=== PATIENT | female | born 2005 | race Caucasian/White ===

== ENCOUNTER → 2023-08-11 08:11 | Outpatient (BNVA) | payer SELFPAY | PROVIDERS: Visit Provider Nurse Practitioner Family | DX: R50.9 Fever, unspecified (principal); J10.1 Influenza due to other identified influenza virus with other respiratory manifestations | CPT/HCPCS: 87400 ==

== ENCOUNTER 2023-08-19 11:27 | Outpatient (REF) | payer SELFPAY ==
[2023-08-22 17:14] LABS: Quantiferon Mitogen 6.84 IU/mL; Quantiferon Nil 0.04 IU/mL; Quantiferon Plus TB1 0.03 IU/mL; Quantiferon Plus TB2 0.01 IU/mL; Quantiferon TB Gold NEGATIVE (NEGATIVE)
== END 2023-08-19 11:28 | disposition home or self-care (01) ==
LOC: LAB 11:27
DX: Z11.1 Encounter for screening for respiratory tuberculosis (principal)
CPT/HCPCS: 86480

== ENCOUNTER 2023-11-05 18:51 | Emergency (ER) | payer OTHER, SELFPAY ==
[2023-11-05 18:58] VITALS: BP 131/64; PULSE 115; RESP 18; TEMP 37.3; O2SAT 97; BMI 32.9
--- NOTE | 2023-11-05 19:47 | ED_ITS ---
HPI - URI/Sore Throat General: Chief Complaint: Upper Respiratory Infection Stated Complaint: feeling weak, headache Time Seen by Provider: 11/05/23 19:39 Source: patient and family Mode of arrival: ambulatory Limitations: no limitations History of Present Illness: This patient presents to the emergency department because of body aches subjective fever runny nose sore throat and congestion that began last evening and is continued today. She states that she has been in bed most of the day. 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 She has a history of chronic migraines and she states she had a concomitant headache but she has not taken any of her headache medication today. She states her last menstrual period was a few days ago and normal. She has not missed any menses. She denies any nausea vomiting or diarrhea but has body aches. She is able to swallow fluids without difficulty. MD elicited complaint: rhinorrhea and nasal congestion Description of mucous: clear Context: sick contacts Associated symptoms: Reports cough, fever(s), headache(s), nasal congestion and sore throat; Deny abdominal pain, chest pain, diarrhea, ear or mastoid pain, nausea or vomiting Review of Systems Const: Reports: fever(s) and body aches ENMT: Reports: throat pain and nasal congestion; Denies: odynophagia or ear or mastoid pain Card: Denies: chest pain Resp: Reports: non-productive cough GI: Denies: abdominal pain, nausea, vomiting or diarrhea : Denies: difficulty voiding, dysuria, urinary frequency or vaginal bleeding Musc: Denies: neck pain, back pain, extremity pain or extremity swelling Skin/Breast: Denies: rash or pruritus Neuro: Reports: headache(s) PFSH ED PFSH: Medical History Psychiatric care Family History Denies family history of Colon cancer Ovarian cancer Prostate cancer Diabetes Heart disease Breast cancer Hypertension Uterine cancer Thyroid disease Stroke Social History Smoking and tobacco/nicotine status: never used tobacco/nicotine Physical Exam Narrative: EXAM NARRATIVE: She appears ill but is able to respond and appropriate goal-directed fashion. She is able to speak in complete sentences without dyspnea or stridor Const: COMMON NORMALS: patient oriented x3, no limitations and alert GENERAL APPEARANCE: cooperative NUTRITIONAL APPEARANCE: overweight HENMT: COMMON NORMALS: normocephalic, Normal nasal mucous membranes and turbinates present, moist oral mucous membranes and oropharynx normal HEAD & SCALP: normocephalic FACE & SINUS: sinuses nontender NOSE: Normal nasal mucous membranes and turbinates present THROAT: tonsils normal and uvula midline Eye: COMMON NORMALS: Equal, round and reactive pupils present, EOMs intact bilaterally and conjunctivae normal CONJUNCTIVA: Yes conjunctivae normal PUPIL: Yes Equal, round and reactive pupils present Neck/C-Spine: COMMON NORMALS: full ROM, no lymphadenopathy, supple and no meningeal signs Chest: COMMONS NORMALS: normal inspection of the chest Resp: COMMON NORMALS: normal respiratory effort, No retractions, No use of accessory muscles and clear to auscultation bilaterally AUSCULTATION: clear to auscultation bilaterally Cardio: COMMON NORMALS: regular rate, regular rhythm, No murmurs present (Cardio) and Peripheral pulses 2+ throughout RATE: regular rate RHYTHM: regular rhythm PERIPHERAL PULSES: Peripheral pulses 2+ throughout GI: COMMON NORMALS: Normal to inspection, nondistended, normoactive bowel sounds present and Soft to palpation PALPATION: Yes Soft to palpation : COMMON NORMALS: Yes no CVA tenderness BLADDER/KIDNEY EXAM: Yes no CVA tenderness Back/Pelvis: COMMON NORMALS: no CVA tenderness, no thoracic nor lumbar tenderness and thoraco-lumbar ROM normal Neuro: COMMON NORMALS: patient oriented x3, moves all extremities, no focal motor deficits and no sensory deficits noted SENSORIUM/ORIENTATION: Yes alert MENINGEAL SIGNS: Yes no meningeal signs Psych: COMMON NORMALS: mental status grossly normal Skin: COMMON NORMALS: no rashes or lesions noted, turgor normal and no jaundice GENERAL SKIN EXAM: no rashes or lesions noted and turgor normal Course Vital Signs: Vital signs: Vital Signs Temperature 99.1 F 11/05/23 18:58 Pulse Rate 115 H 11/05/23 18:58 Respiratory Rate 18 11/05/23 18:58 Blood Pressure 131/64 11/05/23 18:58 Pulse Oximetry 97 11/05/23 18:58 Oxygen Delivery Me thod Room Air 11/05/23 18:58 MDM - URI/Sore Throat Medical Decision Making This patient came to the emergency department as per the history of present illness. She is exposed to potential infectious disease as she works as a rigging worker in the emergency department. Medical examination did not reveal any focal findings such as hypoxia or other concerns. No other focal findings on clinical examination. Evaluation for possible Streptococcus as well as coronavirus were obtained. In the meantime she was also given IV fluids to help hydrate her. Her COVID-19 antigen is positive. She will be discharged with usual COVID-19 precautions with close follow-up. Lab Data I reviewed the patient's lab results. Laboratory Results SARS-CoV-2 Ag (Rapid) positive (Negative) H 11/05/23 19:54 Group A Strep Rapid Negative (Negative) 11/05/23 19:54 No radiology studies performed this visit Discharge Plan Discharge Patient Disposition: Home Clinical Impression: COVID-19 Condition: Stable Prescriptions: No Action trazodone 50 mg tablet 100 mg PO .HS PRN (Reason: insomnia) Qty: 60 2RF fluoxetine [Prozac] 20 mg capsule 20 mg PO DAILY Qty: 30 2RF albuterol sulfate [Ventolin HFA] 90 mcg/actuation HFA aerosol inhaler 2 puff inhalation QID Qty: 6.7 0RF fluticasone propionate [Flonase Allergy Relief] 50 mcg/actuation spray,suspension 1 spray intranasal BID Qty: 16 0RF Rx Instructions: administer into each nostril sumatriptan succinate [Imitrex] 25 mg tablet See Rx Instructions PO .COMPLEX Qty: 14 0RF Rx Instructions: take 1 tab at onset of headache; if no relief may repeat 1 tab after at least 2 hrs; max = 4 tabs/24 hr PO propranolol 80 mg capsule,extended release 24hr 80 mg PO DAILY 14 Days Qty: 14 0RF Discharge Orders: Discharge ED (Routine); Ordered 11/05/23 Ordered By: Michael Santos Referrals: [facility], [Primary Care Provider] - Discharge Diet: Advance as tolerated Discharge Activity: Return to work/school after cleared by PCP/Specialist Patient Instructions: Opioid Safety, Pain Management, Droplet Precautions (ED) Activity Restrictions/Additional Instructions: You have tested positive for COVID-19. The current recommendations for the isolation for by the Center for disease control recommend 5 days isolation. You should wear a mask to help reduce your transmission to others. Continue to hydrate yourself with sports drinks and water half-strength apple juice etc. You should resume a regular diet as you tolerated. If you develop any new or worsening symptoms you are welcome to return to the emergency department for reevaluation. Coding Level of Care Code ED Composing Room Supervisor for Kendra Ruelas
[2023-11-05] MEDS: lactated ringers 1,000 ML 999 ML IV (20:09)
[2023-11-05 20:30] LABS: Rapid Strep A Test Negative (Negative)
[2023-11-05 20:32] LABS: SARS Covid-2 Antigen positive (Negative)
[2023-11-05 20:52] VITALS: BP 140/81; PULSE 98; RESP 16; TEMP 37.3; O2SAT 99
== END 2023-11-05 20:49 | disposition home or self-care (01) ==
PROVIDERS: Emergency Provider Emergency Medicine
DX: U07.1 COVID-19 (principal)
CPT/HCPCS: 87081; 87426; 87880; 96360; 99284; J7120

== ENCOUNTER 2024-05-25 21:04 | Emergency (ER) | payer OTHER, SELFPAY ==
--- NOTE | 2024-05-25 21:06 | XRR_ITS ---
PROCEDURE INFORMATION: Exam: XR Right Ankle Exam date and time: 05/25/2024 9:39 PM Age: 19 years old Clinical indication: Pain; Ankle; Right; Additional info: Fall pain TECHNIQUE: Imaging protocol: Radiologic exam of the right ankle. Views: 3 or more views. COMPARISON: No relevant prior studies available. FINDINGS: Bones/joints: Normal. Soft tissues: Normal. XR/XR ankle RT min 3V* [id number] IMPRESSION: No acute findings.
[2024-05-25 21:26] VITALS: BP 120/75; PULSE 93; RESP 18; TEMP 36.8; O2SAT 99; BMI 34.7
--- NOTE | 2024-05-25 23:44 | W.ED.EXTPRO ---
HPI - Extremity Problem General: Chief complaint: Extremity Injury, Lower Stated complaint: FALL twisted R ankle Time Seen by Provider: 05/25/24 22:10 Source: patient Mode of arrival: wheelchair Limitations: no limitations History of Present Illness: Patient is a 19-year-old female who presents the emergency department complaining of right ankle pain. Patient states she was at work and took an awkward step, twisting her right ankle in an inversion fashion. States she has not tried to walk secondary to the pain, she arrives in a wheelchair. She notes that she is on her feet all day for work and does not think she can go back to work with amount of pain she is. Has not taken anything for her symptoms. She notes that it feels better if she hangs her right foot off the bed. No knee pain. No numbness weakness or tingling in her right foot. No significant swelling. No other symptoms noted at this time. Vitals within normal limits. MD Complaint: joint pain Onset (ago): hour(s) Pain Consistency: constant Location: right and lower extremity (Ankle) Quality: aching and sharp Radiation: none Exacerbating factors: range of motion, weight bearing and walking Associated symptoms: Deny chest pain, fever(s) or rash Related Data Previous Rx's ?Medication ?Instructions ?Recorded albuterol sulfate 90 mcg/actuation 2 puff inhalation QID #6.7 grams 01/24/24 aerosol inhaler (Ventolin HFA) calcipotriene 0.005 % topical cream 1 applic topical BID #120 grams 04/25/24 clobetasol 0.05 % lotion 1 applic topical BID PRN psoriasis 04/25/24 2 weeks #118 mL propranolol 20 mg tablet 20 mg PO BID #60 tabs 04/25/24 sumatriptan succinate 25 mg tablet See Rx Instructions PO .COMPLEX 04/25/24 (Imitrex) #30 tabs trazodone 50 mg tablet 50 mg PO .HS PRN insomnia #90 tabs 04/25/24 triamcinolone acetonide 0.1 % 1 applic topical BID PRN psoriasis 04/25/24 topical ointment 2 weeks #30 grams Allergies Allergy/AdvReac Type Severity Reaction Status Date / Time No Known Allergies Allergy Verified 04/25/24 13:12 Review of Systems General: Reports: 10 or more systems reviewed and unremarkable except in HPI and below Const: Denies: fever(s) or chills Card: Denies: chest pain Resp: Denies: dyspnea or productive cough GI: Denies: abdominal pain, nausea, vomiting or diarrhea : Denies: flank pain Musc: Reports: joint pain (Right ankle) and limited range of motion; Denies: neck pain, back pain, extremity pain, extremity swelling, joint swelling, joint redness, joint warmth or muscle weakness Skin/Breast: Denies: rash Neuro: Denies: headache(s), numbness in extremities or weakness in extremities PFSH ED PFSH: Medical History Psoriasis Migraines Endometriosis Dysmenorrhea, unspecified Psychiatric care Family History Denies family history of Colon cancer Ovarian cancer Prostate cancer Diabetes Heart disease Breast cancer Hypertension Uterine cancer Thyroid disease Stroke Social History Smoking and tobacco/nicotine status: current every day tobacco/nicotine user Physical Exam Const: COMMON NORMALS: no acute distress, patient oriented x3, no limitations, healthy appearing, alert and well nourished HENMT: COMMON NORMALS: normocephalic and atraumatic HEAD & SCALP: normocephalic and atraumatic Neck/C-Spine: COMMON NORMALS: full ROM, supple and no meningeal signs Resp: COMMON NORMALS: normal respiratory effort and No use of accessory muscles Extremity: COMMON NORMALS: normal to inspection, full ROM, capillary refill normal, no joint enlargement and no clubbing, cyanosis or edema NARRATIVE EXTREMITY EXAM: Tender to palpation right lateral ankle, positive inversion ankle testing. No joint laxity. No bruising or obvious swelling of the right ankle at this time. No obvious swelling of the right foot. Distal neurovascular exam intact. Normal dorsiflexion and plantarflexion. Dorsalis pedis and posterior tibial pulse palpable. Normal knee exam. Neuro: COMMON NORMALS: patient oriented x3, moves all extremities, no focal motor deficits and no sensory deficits noted SENSORIUM/ORIENTATION: Yes alert MENINGEAL SIGNS: Yes no meningeal signs Skin: COMMON NORMALS: no rashes or lesions noted GENERAL SKIN EXAM: no rashes or lesions noted Course Vital Signs: Vital signs: Vital Signs Temperature 98.3 F 05/25/24 21:26 Pulse Rate 93 05/25/24 21:26 Respiratory Rate 18 05/25/24 21:26 Blood Pressure 120/75 05/25/24 21:26 Pulse Oximetry 99 05/25/24 21:26 Oxygen Delivery Me thod Room Air 05/25/24 21:26 MDM - Extremity (Nontraumatic) Medical Decision Making Patient had inversion ankle injury, her x-ray was normal but did have quite a bit of tenderness of right lateral ankle. I suspect ankle sprain will however treat conservatively with RICE therapy and ibuprofen and Tylenol. Compression added here and she is given crutches to use as tolerated and at her request, but did encourage early ambulation and ultimately gave her a work note for tomorrow due to her job requiring standing for greater than 10 hours. Return precautions given, she is encouraged to follow-up routinely with primary care. Lab Data Radiology Impressions Ankle X-Ray 05/25/24 21:06 IMPRESSION: No acute findings. All radiology interpretation(s) finalized by discharge Discharge Plan Discharge Patient Disposition: Home Clinical Impression: Right ankle sprain Condition: Stable Prescriptions: No Action trazodone 50 mg tablet 50 mg PO .HS PRN (Reason: insomnia) Qty: 90 2RF propranolol 20 mg tablet 20 mg PO BID Qty: 60 1RF sumatriptan succinate [Imitrex] 25 mg tablet See Rx Instructions PO .COMPLEX Qty: 30 0RF Rx Instructions: take 1 tab at onset of headache; if no relief may repeat 1 tab after at least 2 hrs; max = 4 tabs/24 hr PO clobetasol 0.05 % lotion 1 applic topical BID PRN (Reason: psoriasis) 14 Days Qty: 118 0RF Rx Instructions: Apply BID for flare, no more than 2 weeks, not on face triamcinolone acetonide 0.1 % ointment 1 applic topical BID PRN (Reason: psoriasis) 14 Days Qty: 30 2RF Rx Instructions: apply twice daily, alternate with calcipotriene calcipotriene 0.005 % cream 1 applic topical BID Qty: 120 0RF Rx Instructions: apply twice daily, no more than 2 weeks a month. alternating with triamcinolone albuterol sulfate [Ventolin HFA] 90 mcg/actuation HFA aerosol inhaler 2 puff inhalation QID Qty: 6.7 0RF Discharge Orders: Discharge ED (Routine); Ordered 05/25/24 Ordered By: Cayden Clifton Referrals: Saad Gonzalez MD [Primary Care Provider] - Patient Instructions: Ankle Sprain (ED) Activity Restrictions/Additional Instructions: Rest, ice, compression, and elevation. Alternate ibuprofen and Tylenol as we discussed. Range of motion as tolerated, weightbearing as tolerated. Work note provided. Please see attached patient instructions for further education. Follow-up with primary care routinely. Stand Alone Forms: Work/School Release Print Language: Gibraltarian Coding Level of Care Code ED Site Damage Prevention Technician for Kendra Ruelas
[2024-05-25 23:57] VITALS: BP 118/73; PULSE 89; RESP 16; O2SAT 100
== END 2024-05-25 23:49 | disposition home or self-care (01) ==
PROVIDERS: Emergency Provider Physician Assistant; PCP Family Medicine
DX: S93.401A Sprain of unspecified ligament of right ankle, initial encounter (principal); Z72.0 Tobacco use; X58.XXXA Exposure to other specified factors, initial encounter
CPT/HCPCS: 73610; 99283; E0114

== ENCOUNTER 2024-06-17 12:33 | Emergency (ER) | payer OTHER, SELFPAY ==
[2024-06-17 12:47] VITALS: BP 147/99; PULSE 65; RESP 18; TEMP 36.8; O2SAT 100; BMI 32.9
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
[2024-06-17 13:16] VITALS: BP 141/88; PULSE 66; O2SAT 99
== END 2024-06-17 13:16 | disposition home or self-care (01) ==
PROVIDERS: Emergency Provider Emergency Medicine; PCP Family Medicine
DX: T21.01XA Burn of unspecified degree of chest wall, initial encounter (principal); X58.XXXA Exposure to other specified factors, initial encounter
CPT/HCPCS: 99283

== ENCOUNTER 2024-06-21 16:16 | Emergency (ER) | payer OTHER, SELFPAY ==
[2024-06-21 16:23] VITALS: BP 120/78; PULSE 72; RESP 14; TEMP 36.8; O2SAT 98
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
[2024-06-21 17:53] VITALS: BP 123/59; PULSE 60; O2SAT 99
== END 2024-06-21 17:54 | disposition home or self-care (01) ==
PROVIDERS: Emergency Provider Physician Assistant; PCP Family Medicine
DX: T21.21XA Burn of second degree of chest wall, initial encounter (principal); Z72.0 Tobacco use; X58.XXXA Exposure to other specified factors, initial encounter
CPT/HCPCS: 99281